=== PATIENT | male | born 1980 | race Caucasian/White ===

== ENCOUNTER → 2021-03-03 | Outpatient (CLI) | payer MEDICARE, OTHER | LOC: HEART CORB 08:48 | DX: R07.2 Precordial pain (principal); R00.2 Palpitations; I47.1 Supraventricular tachycardia; E78.2 Mixed hyperlipidemia; F17.200 Nicotine dependence, unspecified, uncomplicated | CPT/HCPCS: 78452; 93306; A9502; J2785 ==